=== PATIENT | female | born 1935 | race Two or more races ===

== ENCOUNTER 2024-05-25 17:02 | Emergency (ER) | payer OTHER ==
[~2024-05-25] VITALS: Ht 165.1 cm
[2024-05-25] MEDS ORDERED: LEXAPRO5 MG PO (17:37)
[2024-05-25] MEDS ORDERED: MILLIPRED5 MG PO (17:37)
[2024-05-25] MEDS ORDERED: CLONAZEPAM0.5 M1 PO (17:39)
[2024-05-25] MEDS ORDERED: LEVOTHYROXINE25 MCG PO (17:39)
[2024-05-25] MEDS ORDERED: CLINDAMYCIN PHOSPHATE 150 MG/ML (900mg) IV ONE (18:45)
== END 2024-05-25 19:34 | disposition home or self-care (01) ==
LOC: ER 17:04
DX: L03.90 Cellulitis, unspecified (principal)
CPT/HCPCS: 96365; 99282; J3490

== ENCOUNTER 2024-05-27 17:09 | Emergency (ER) | payer OTHER ==
[~2024-05-27] VITALS: Ht 165.1 cm; Wt 71.7 kg
[~2024-05-27 17:09] MED LIST: CLONAZEPAM0.5 M1 PO; LEVOTHYROXINE25 MCG PO; LEXAPRO5 MG PO; MILLIPRED5 MG PO
[2024-05-27] MEDS ORDERED: CLINDAMYCIN PHOSPHATE 150 MG/ML (900mg) IV ONE (17:45)
[2024-05-27 18:24] LABS: HEMOGLOBIN 12.6 g/dL (12.0-15.00); MEAN CELL VOLUME 91.1 fL (80.00-100.00); MEAN CORPUSCULAR HEMOGLOBIN 30.3 pg (27.00-32.0); MEAN CORPUSCULAR HGB CONC 33.3 g/dl (32.0-36.0); PLATELET COUNT 305 K/uL (150-450); RED BLOOD COUNT 4.17 M/uL (4.00-6.00); RED CELL DISTRIBUTION WIDTH 13.8 % (11.5-14.5)
[2024-05-27 18:49] LABS: CALCIUM 8.9 mg/dL (8.5-10.1); CREATININE SERUM 0.89 mg/dL (0.55-1.02); POTASSIUM 4.05 mEq/L (3.5-5.1)
== END 2024-05-27 20:12 | disposition home or self-care (01) ==
LOC: ER 17:09
PROVIDERS: Emergency Medicine
DX: L03.115 Cellulitis of right lower limb (principal)
CPT/HCPCS: 36415; 96365; 99282; J3490

== ENCOUNTER 2024-05-27 17:55 | Outpatient (CLI) | payer OTHER | END 2024-05-27 23:00 | disposition home or self-care (01) | LOC: LAB 17:55 | PROVIDERS: ATTEND General Practice | DX: L97.918 Non-pressure chronic ulcer of unspecified part of right lower leg with other specified severity (principal) ==